=== PATIENT | male | born 1985 | race Two or more races ===

== ENCOUNTER 2017-08-14 11:59 | Emergency (ER) | payer SELFPAY ==
[2017-08-14] MEDS ORDERED: Sodium Chloride 0.9% 1,000 ML IV ONE (12:05)
[2017-08-14] MEDS ORDERED: Ondansetron 4 MG/2 ML SDV IVPUSH ONE (12:13)
--- NOTE | 2017-08-14 12:31 | EDM.PDOC ---
ED HPI GENERAL MEDICAL PROBLEM - General Chief Complaint: Cardiovascular Problem Stated Complaint: DIZZINESS,CLAMMY Time Seen by Provider: 08/14/17 12:04 Source of Information: Reports: Patient History Limitations: Reports: No Limitations - History of Present Illness INITIAL COMMENTS - FREE TEXT/NARRATIVE: HISTORY AND PHYSICAL: History of present illness: Patient is a 32-year-old male who presents to the emergency room with complaints of dizziness that started this morning. He states that on his way to the hospital he did have some nausea, vomiting times one and chest wall pain. Points to his axillary low chest wall bilaterally (no mid-sternal CP). He denies any abdominal pain, diarrhea or constipation. Denies any alcohol or drug abuse. Review of systems: As per history of present illness and below otherwise all systems reviewed and negative. Past medical history: As per history of present illness and as reviewed below otherwise noncontributory. Surgical history: As per history of present illness and as reviewed below otherwise noncontributory. Social history: No reported history of drug or alcohol abuse. Family history: As per history of present illness and as reviewed below otherwise noncontributory. Physical exam: Enteral: Well-developed and well-nourished 32-year-old male. Alert and oriented. Nontoxic appearing and in no acute distress. HEENT: Atraumatic, normocephalic, pupils reactive, negative for conjunctival pallor or scleral icterus, mucous membranes moist, throat clear, tympanic membranes normal bilaterally, neck supple, nontender, trachea midline. Meningeal sign or trismus. The drooling or hot potato voice. Lungs: Clear to auscultation, breath sounds equal bilaterally, chest nontender. Heart: S1S2, regular rate and rhythm Abdomen: Soft, nondistended, nontender. Negative for masses or hepatosplenomegaly. Negative for costovertebral tenderness. Pelvis: Stable nontender. Genitourinary: Deferred. Rectal: Deferred. Extremities: Atraumatic, negative for cords or calf pain. Neurovascular unremarkable. Neuro: Awake, alert, oriented. Cranial nerves II through XII unremarkable. Cerebellum unremarkable. Motor and sensory unremarkable throughout. Exam nonfocal. Patient's symptoms are vague and nonspecific. Vital signs are stable. EKG shows normal sinus rhythm, heart rate 65. Diagnostics: CBC, CMP, troponin, EKG Therapeutics: IV fluid, Zofran Impression: Dizziness Plan: 1. Supportive care measures such as Tylenol and/or ibuprofen as needed. Encourage fluids to prevent dehydration. Wayne diet for the next 24-48 hours to prevent upset stomach/vomiting. Please rest for the remainder of the day. 2. Follow-up with your primary care provider in the next 1-2 days. Return to the ED as needed and as discussed. Definitive disposition and diagnosis as appropriate pending reevaluation and review of above. Onset: Today Duration: Hour(s): Location: Reports: Head, Chest chest Pain Score (Numeric/FACES): 4 - Related Data Allergies Allergy/AdvReac Type Severity Reaction Status Date / Time No Known Allergies Allergy Verified 08/14/17 12:03 Home Meds: Home Meds . [No Known Home Meds] 08/14/17 [History] Past Medical History HEENT History: Reports: None Cardiovascular History: Reports: None Respiratory History: Reports: None Gastrointestinal History: Reports: None Genitourinary History: Reports: None Musculoskeletal History: Reports: None Neurological History: Reports: None Psychiatric History: Reports: Anxiety Endocrine/Metabolic History: Reports: None Hematologic History: Reports: None Immunologic History: Reports: None Oncologic (Cancer) History: Reports: None Dermatologic History: Reports: None - Past Surgical History Head Surgeries/Procedures: Reports: None HEENT Surgical History: Reports: None Cardiovascular Surgical History: Reports: None Respiratory Surgical History: Reports: None GI Surgical History: Reports: None Male Surgical History: Reports: None Neurological Surgical History: Reports: None Musculoskeletal Surgical History: Reports: None Oncologic Surgical History: Reports: None Dermatological Surgical History: Reports: None Social & Family History - Family History Family Medical History: Noncontributory - Tobacco Use Smoking Status *Q: Never Smoker Second Hand Smoke Exposure: No - Caffeine Use Caffeine Use: Reports: Coffee - Recreational Drug Use Recreational Drug Use: Yes Recreational Drug Type: Reports: Marijuana/Hashish Recreational Drug Use Frequency: Daily ED ROS GENERAL - Review of Systems Review Of Systems: ROS reveals no pertinent complaints other than HPI. ED EXAM, GENERAL - Physical Exam Exam: See Below (See dictation) Course - Vital Signs Last Recorded V/S: Last Vital Signs Temp 96.7 F 08/14/17 12:03 Pulse 91 08/14/17 12:03 Resp 18 08/14/17 12:03 BP 157/83 H 08/14/17 12:03 Pulse Ox 98 08/14/17 12:03 Orthostatic Blood Pressure [ 124/69 Standing] Orthostatic Blood Pressure [ 122/66 Sitting] Orthostatic Blood Pressure [ 124/69 Supine] - Orders/Labs/Meds Orders: Active Orders 24 hr Category Date Time Status EKG Documentation Completion [RC] STAT Care 08/14/17 12:04 Active Orthostatic Vital Signs [RC] ASDIRECTED Care 08/14/17 12:04 Active Labs: Laboratory Tests 08/14/17 08/14/17 08/14/17 Range/Units 12:12 12:12 12:12 WBC 4.92 (4.0-11.0) K/uL RBC 4.81 (4.50-5.90) M/uL Hgb 14.2 (13.0-17.0) g/dL Hct 40.6 (38.0-50.0) % MCV 84.4 (80.0-98.0) fL MCH 29.5 (27.0-32.0) pg MCHC 35.0 (31.0-37.0) g/dL RDW Std Deviation 41.6 (28.0-62.0) fl RDW Coeff of Diane 14 (11.0-15.0) % Plt Count 230 (150-400) K/uL MPV 9.20 (7.40-12.00) fL Neut % (Auto) 49.1 (48.0-80.0) % Lymph % (Auto) 40.4 H (16.0-40.0) % Jay % (Auto) 7.3 (0.0-15.0) % Eos % (Auto) 2.6 (0.0-7.0) % Baso % (Auto) 0.6 (0.0-1.5) % Neut # (Auto) 2.4 (1.4-5.7) K/uL Lymph # (Auto) 2.0 (0.6-2.4) K/uL Jay # (Auto) 0.4 (0.0-0.8) K/uL Eos # (Auto) 0.1 (0.0-0.7) K/uL Baso # (Auto) 0.0 (0.0-0.1) K/uL Nucleated RBC % 0.0 /100WBC Nucleated RBCs # 0 K/uL Sodium 139 (136-148) mmol/L Potassium 3.5 (3.5-5.1) mmol/L Chloride 103 (98-107) mmol/L Carbon Dioxide 21.9 (21.0-32.0) mmol/L BUN 19 H (7.0-18.0) mg/dL Creatinine 1.0 (0.8-1.3) mg/dL Est Cr Clr Drug Dosing 107.03 mL/min Estimated GFR (MDRD) > 60.0 ml/min Glucose 91 (74-106) mg/dL Calcium 9.1 (8.5-10.1) mg/dL Total Bilirubin 0.4 (0.2-1.0) mg/dL AST 41 H (15-37) IU/L ALT 44 (14-63) IU/L Alkaline Phosphatase 72 (46-116) U/L Troponin I < 0.050 (0.000-0.056) ng/mL Total Protein 7.8 (6.4-8.2) g/dL Albumin 4.2 (3.4-5.0) g/dL Globulin 3.6 H (2.0-3.5) g/dL Albumin/Globulin Ratio 1.2 L (1.3-2.8) Meds: Medications Discontinued Medications Generic Name Dose Route Start Last Admin Trade Name Freq PRN Reason Stop Dose Admin Sodium Chloride 1,000 mls @ 999 mls/hr 08/14/17 12:05 08/14/17 12:16 Normal Saline IV 08/14/17 13:05 999 mls/hr STAT ONE Administration Ondansetron HCl 4 mg 08/14/17 12:13 08/14/17 12:20 Zofran IVPUSH 08/14/17 12:14 4 mg ONETIME ONE Administration Departure - Departure Time of Disposition: 13:21 Disposition: Home, Self-Care 01 Clinical Impression: Dizziness Instructions: Dizziness, [id number] Referrals: PCP,None [Primary Care Provider] - Forms: ED Department Discharge Additional Instructions: My general discharge The following information is given to patients seen in the emergency department who are being discharged to home. This information is to outline your options for follow-up care. We provide all patients seen in our emergency department with a follow-up referral. The need for follow-up, as well as the timing and circumstances, are variable depending upon the specifics of your emergency department visit. If you don't have a primary care physician on staff, we will provide you with a referral. We always advise you to contact your personal physician following an emergency department visit to inform them of the circumstance of the visit and for follow-up with them and/or the need for any referrals to a consulting specialist. The emergency department will also refer you to a specialist when appropriate. This referral assures that you have the opportunity for follow-up care with a specialist. All of these measure are taken in an effort to provide you with optimal care, which includes your follow-up. Under all circumstances we always encourage you to contact your private physician who remains a resource for coordinating your care. When calling for follow-up care, please make the office aware that this follow-up is from your recent emergency room visit. If for any reason you are refused follow-up, please contact the [facility] Emergency Department at and asked to speak to the emergency department charge nurse. [facility] [address] [place] [address] 1. Supportive care measures such as Tylenol and/or ibuprofen as needed. Encourage fluids to prevent dehydration. Wayne diet for the next 24-48 hours to prevent upset stomach/vomiting. Please rest for the remainder of the day. 2. Follow-up with your primary care provider in the next 1-2 days. Return to the ED as needed and as discussed. - My Orders Last 24 Hours: My Active Orders 08/14/17 12:04 EKG Documentation Completion [RC] STAT Orthostatic Vital Signs [RC] ASDIRECTED - Assessment/Plan Last 24 Hours: My Active Orders 08/14/17 12:04 EKG Documentation Completion [RC] STAT Orthostatic Vital Signs [RC] ASDIRECTED
[2017-08-14 12:49] LABS: CHLORIDE,CL 103 mmol/L (98-107); SODIUM,NA 139 mmol/L (136-148)
== END 2017-08-14 13:24 | disposition home or self-care (01) ==
LOC: MW.ED 11:59
DX: R42 Dizziness and giddiness (principal)
CPT/HCPCS: 36415; 80053; 84484; 85025; 93005; 96361; 96374; 99285; J2405; J7040; 99283

== ENCOUNTER 2018-07-30 15:12 | Emergency (ER) | payer BC ==
[2018-07-30] MEDS ORDERED: Sodium Chloride 0.9% 1,000 ML IV ONE (15:13)
--- NOTE | 2018-07-30 15:15 | EDM.PDOC ---
ED HPI GENERAL MEDICAL PROBLEM - General Stated Complaint: DIZZINESS Time Seen by Provider: 07/30/18 15:14 Source of Information: Reports: Patient - History of Present Illness INITIAL COMMENTS - FREE TEXT/NARRATIVE: HISTORY AND PHYSICAL: History of present illness: [Patient presents with dizziness Patient is been having sinus pain and pressure over the last couple of weeks associated with cough today at work became dizzy and had to sit down he describes sweats as well he arrives by private vehicle in no distress no passing out for anything of this nature no fever nausea vomiting chills sweats no chest pain shortness breath headache dizziness palpitation no bowel or urine symptoms Review of systems: As per history of present illness and below otherwise all systems reviewed and negative. Past medical history: As per history of present illness and as reviewed below otherwise noncontributory. Surgical history: As per history of present illness and as reviewed below otherwise noncontributory. Social history: No reported history of drug or alcohol abuse. Family history: As per history of present illness and as reviewed below otherwise noncontributory. Physical exam: HEENT: Atraumatic, normocephalic, pupils reactive, negative for conjunctival pallor or scleral icterus, mucous membranes moist, throat clear, neck supple, nontender, trachea midline. Sinus tenderness left greater than right maxillary sinus Lungs: Clear to auscultation, breath sounds equal bilaterally, chest nontender. Heart: S1S2, regular, negative for clicks, rubs, or JVD. Abdomen: Soft, nondistended, nontender. Negative for masses or hepatosplenomegaly. Negative for costovertebral tenderness. Pelvis: Stable nontender. Genitourinary: Deferred. Rectal: Deferred. Extremities: Atraumatic, negative for cords or calf pain. Neurovascular unremarkable. Neuro: Awake, alert, oriented. Cranial nerves II through XII unremarkable. Cerebellum unremarkable. Motor and sensory unremarkable throughout. Exam nonfocal. Diagnostics: [CBC CMP UA troponin Chest 1 view EKG ] orthostatics Therapeutics: [Normal saline ]Amoxicillin Impression: [ dizziness ]-his ALT Sinusitis Definitive disposition and diagnosis as appropriate pending reevaluation and review of above. - Related Data Allergies Allergy/AdvReac Type Severity Reaction Status Date / Time No Known Allergies Allergy Verified 08/14/17 12:03 Home Meds: Home Meds . [No Known Home Meds] 08/14/17 [History] Past Medical History HEENT History: Reports: None Cardiovascular History: Reports: None Respiratory History: Reports: None Gastrointestinal History: Reports: None Genitourinary History: Reports: None Musculoskeletal History: Reports: None Neurological History: Reports: None Psychiatric History: Reports: Anxiety Endocrine/Metabolic History: Reports: None Hematologic History: Reports: None Immunologic History: Reports: None Oncologic (Cancer) History: Reports: None Dermatologic History: Reports: None - Past Surgical History Head Surgeries/Procedures: Reports: None HEENT Surgical History: Reports: None Cardiovascular Surgical History: Reports: None Respiratory Surgical History: Reports: None GI Surgical History: Reports: None Male Surgical History: Reports: None Neurological Surgical History: Reports: None Musculoskeletal Surgical History: Reports: None Oncologic Surgical History: Reports: None Dermatological Surgical History: Reports: None Social & Family History - Family History Family Medical History: Noncontributory - Caffeine Use Caffeine Use: Reports: Coffee ED ROS GENERAL - Review of Systems Review Of Systems: See Below ED EXAM, GENERAL - Physical Exam Exam: See Below Course - Vital Signs Last Recorded V/S: Last Vital Signs Temp Pulse 79 07/30/18 15:45 Resp 15 07/30/18 15:45 BP 149/93 H 07/30/18 15:45 Pulse Ox 95 07/30/18 15:45 Orthostatic Blood Pressure [] 149/92 Orthostatic Blood Pressure [] 139/83 - Orders/Labs/Meds Orders: Active Orders 24 hr Category Date Time Status EKG Documentation Completion [RC] STAT Care 07/30/18 15:14 Active Labs: Laboratory Tests 07/30/18 07/30/18 07/30/18 Range/Units 15:31 15:31 16:25 WBC 4.72 (4.0-11.0) K/uL RBC 4.67 (4.50-5.90) M/uL Hgb 14.0 (13.0-17.0) g/dL Hct 40.6 (38.0-50.0) % MCV 86.9 (80.0-98.0) fL MCH 30.0 (27.0-32.0) pg MCHC 34.5 (31.0-37.0) g/dL RDW Std Deviation 44.2 (28.0-62.0) fl RDW Coeff of Diane 14 (11.0-15.0) % Plt Count 204 (150-400) K/uL MPV 9.60 (7.40-12.00) fL Neut % (Auto) 53.5 (48.0-80.0) % Lymph % (Auto) 32.4 (16.0-40.0) % [place] % (Auto) 9.5 (0.0-15.0) % Eos % (Auto) 4.0 (0.0-7.0) % Baso % (Auto) 0.6 (0.0-1.5) % Neut # (Auto) 2.5 (1.4-5.7) K/uL Lymph # (Auto) 1.5 (0.6-2.4) K/uL [place] # (Auto) 0.5 (0.0-0.8) K/uL Eos # (Auto) 0.2 (0.0-0.7) K/uL Baso # (Auto) 0.0 (0.0-0.1) K/uL Nucleated RBC % 0.0 /100WBC Nucleated RBCs # 0 K/uL Sodium 139 (136-148) mmol/L Potassium 4.1 (3.5-5.1) mmol/L Chloride 103 (98-107) mmol/L Carbon Dioxide 27.3 (21.0-32.0) mmol/L BUN 22 H (7.0-18.0) mg/dL Creatinine 1.2 (0.8-1.3) mg/dL Est Cr Clr Drug Dosing 88.38 mL/min Estimated GFR (MDRD) > 60.0 ml/min Glucose 104 (74-106) mg/dL Calcium 8.9 (8.5-10.1) mg/dL Total Bilirubin 0.3 (0.2-1.0) mg/dL AST 26 (15-37) IU/L ALT 33 (14-63) IU/L Alkaline Phosphatase 78 (46-116) U/L Troponin I < 0.050 (0.000-0.056) ng/mL Total Protein 7.5 (6.4-8.2) g/dL Albumin 4.1 (3.4-5.0) g/dL Globulin 3.4 (2.6-4.0) g/dL Albumin/Globulin Ratio 1.2 (0.9-1.6) Urine Color YELLOW Urine Appearance CLEAR Urine pH 6.0 (5.0-8.0) Ur Specific [place] 1.025 (1.001-1.035) Urine Protein NEGATIVE (NEGATIVE) mg/dL Urine Glucose (UA) NEGATIVE (NEGATIVE) mg/dL Urine Ketones NEGATIVE (NEGATIVE) mg/dL Urine Occult Blood NEGATIVE (NEGATIVE) Urine Nitrite NEGATIVE (NEGATIVE) Urine Bilirubin NEGATIVE (NEGATIVE) Urine Urobilinogen 0.2 (<2.0) EU/dL Ur Leukocyte Esterase NEGATIVE (NEGATIVE) Meds: Medications Discontinued Medications Generic Name Dose Route Start Last Admin Trade Name Freq PRN Reason Stop Dose Admin Sodium Chloride 1,000 mls @ 999 mls/hr 07/30/18 15:13 07/30/18 15:44 Normal Saline IV 07/30/18 16:13 999 mls/hr STAT ONE Administration Departure - Departure Time of Disposition: 17:08 Disposition: Home, Self-Care 01 Condition: Good Clinical Impression: Sinusitis - Discharge Information Referrals: PCP,None [Primary Care Provider] - Additional Instructions: The following information is given to patients seen in the emergency department who are being discharged to home. This information is to outline your options for follow-up care. We provide all patients seen in our emergency department with a follow-up referral. The need for follow-up, as well as the timing and circumstances, are variable depending upon the specifics of your emergency department visit. If you don't have a primary care physician on staff, we will provide you with a referral. We always advise you to contact your personal physician following an emergency department visit to inform them of the circumstance of the visit and for follow-up with them and/or the need for any referrals to a consulting specialist. The emergency department will also refer you to a specialist when appropriate. This referral assures that you have the opportunity for follow-up care with a specialist. All of these measure are taken in an effort to provide you with optimal care, which includes your follow-up. Under all circumstances we always encourage you to contact your private physician who remains a resource for coordinating your care. When calling for follow-up care, please make the office aware that this follow-up is from your recent emergency room visit. If for any reason you are refused follow-up, please contact the [facility] emergency department at and asked to speak to the emergency department charge nurse. - My Orders Last 24 Hours: My Active Orders 07/30/18 15:14 EKG Documentation Completion [RC] STAT - Assessment/Plan Last 24 Hours: My Active Orders 07/30/18 15:14 EKG Documentation Completion [RC] STAT
--- NOTE | 2018-07-30 16:24 | CR ---
EXAMINATION: Portable chest radiograph. HISTORY: Shortness of breath. FINDINGS: The trachea is midline. The cardiomediastinal silhouette is within normal limits. No pulmonary infiltrates, effusions or pneumothorax. Osseous structures appear unremarkable. IMPRESSION: No acute cardiopulmonary process.
[2018-07-30 16:38] LABS: CHLORIDE,CL 103 mmol/L (98-107); SODIUM,NA 139 mmol/L (136-148)
== END 2018-07-30 17:50 | disposition home or self-care (01) ==
LOC: MW.ED 15:12
DX: J32.9 Chronic sinusitis, unspecified (principal)
CPT/HCPCS: 36415; 71045; 80053; 81003; 84484; 85025; 93005; 96360; 96361; 99284; J7040; 99283

== ENCOUNTER 2019-07-21 15:33 | Emergency (ER) | payer BC ==
[2019-07-21] MEDS ORDERED: Tetracaine HCl/PF 0.5% 4 ML Bottle EYEBOTH ONE (16:31)
--- NOTE | 2019-07-21 16:32 | EDM.PDOC ---
ED HPI GENERAL MEDICAL PROBLEM - General Chief Complaint: Eye Problems Stated Complaint: SOMETHING IN EYE Time Seen by Provider: 07/21/19 16:25 Source of Information: Reports: Patient History Limitations: Reports: No Limitations - History of Present Illness INITIAL COMMENTS - FREE TEXT/NARRATIVE: HISTORY AND PHYSICAL: History of present illness: Patient is a 34-year-old male who presents to the emergency room with complaints of a foreign body in the right eye. 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 He has a sensation of foreign body every time he blinks and did flush his eyes with copious amounts of irrigating solution while at work. Does not wear any contacts. He denies any change in vision. Offers no systemic complaints. Review of systems: As per history of present illness and below otherwise all systems reviewed and negative. Past medical history: As per history of present illness and as reviewed below otherwise noncontributory. Surgical history: As per history of present illness and as reviewed below otherwise noncontributory. Social history: See social history for further information Family history: As per history of present illness and as reviewed below otherwise noncontributory. Physical exam: General: Well-developed and well-nourished 34-year-old male. Alert and oriented. Nontoxic-appearing and in no acute distress. HEENT: Atraumatic, normocephalic, pupils equal and reactive bilaterally, negative for conjunctival pallor or scleral icterus, Pinpoint FB right eye, no intraoccular pain with movement, mucous membranes moist, TMs normal bilaterally , throat clear, neck supple, nontender, trachea midline. No drooling or trismus noted. No meningeal signs. No hot potato voice noted. Lungs: Clear to auscultation, breath sounds equal bilaterally. Heart: S1S2, regular rate and rhythm without overt murmur Skin: Intact, warm, dry. No lesions or rashes noted. Extremities: Atraumatic, moves all extremities per self without difficulty or deficits. Neurovascular unremarkable. Neuro: Awake, alert, oriented. Cranial nerves II through XII unremarkable. Cerebellum unremarkable. Motor and sensory unremarkable throughout. Exam nonfocal. Notes: Tetracaine was used to anesthetize the eye. There is no corneal abrasions noted. There is a small pinpoint foreign body noted in the center of the eye. I did attempt to remove this, unsuccessful. Dr. Wing, staking press operator on- call was consulted on this case. He states he will see the patient tomorrow morning before clinic. Requested to give him some erythromycin ointment while here. All information was shared with the patient. Supportive care measures were reviewed and discussed. Voices understanding and is agreeable to plan of care. Denies any further questions or concerns at this time. Diagnostics: [employer]: Tetracaine, Erythromycin Prescription: None Impression: Eye FB, right Plan: 1. Apply the ointment every 4 hours while awake. Until seen by Dr Renae. 2. Dr Renae at [facility] will see you tomorrow morning between 7:30am - 8am. 3. Tylenol and/or ibuprofen as needed for pain management. 4. Return to the ED as needed and as discussed. Definitive disposition and diagnosis as appropriate pending reevaluation and review of above. - Related Data Allergies Allergy/AdvReac Type Severity Reaction Status Date / Time No Known Allergies Allergy Verified 07/21/19 16:21 Home Meds: Home Meds . [No Known Home Meds] 08/14/17 [History] Past Medical History HEENT History: Reports: None Cardiovascular History: Reports: None Respiratory History: Reports: None Gastrointestinal History: Reports: None Genitourinary History: Reports: None Musculoskeletal History: Reports: None Neurological History: Reports: None Psychiatric History: Reports: Anxiety Endocrine/Metabolic History: Reports: None Hematologic History: Reports: None Immunologic History: Reports: None Oncologic (Cancer) History: Reports: None Dermatologic History: Reports: None - Infectious Disease History Infectious Disease History: Reports: None - Past Surgical History Head Surgeries/Procedures: Reports: None HEENT Surgical History: Reports: None Cardiovascular Surgical History: Reports: None Respiratory Surgical History: Reports: None GI Surgical History: Reports: None Male Surgical History: Reports: None Neurological Surgical History: Reports: None Musculoskeletal Surgical History: Reports: None Oncologic Surgical History: Reports: None Dermatological Surgical History: Reports: None Social & Family History - Family History Family Medical History: Noncontributory - Tobacco Use Smoking Status *Q: Never Smoker - Caffeine Use Caffeine Use: Reports: Coffee - Recreational Drug Use Recreational Drug Use: No ED ROS GENERAL - Review of Systems Review Of Systems: Comprehensive ROS is negative, except as noted in HPI. ED EXAM GENERAL W FULL EYE - Physical Exam Exam: See Below (See dictation) Course - Vital Signs Last Recorded V/S: Last Vital Signs Temp 96.9 F 07/21/19 16:21 Pulse 85 07/21/19 16:21 Resp 18 07/21/19 16:21 BP 141/87 H 07/21/19 16:21 Pulse Ox 98 07/21/19 16:21 - Orders/Labs/Meds Meds: Medications Discontinued Medications Generic Name Dose Route Start Last Admin Trade Name Sarai PRN Reason Stop Dose Admin Erythromycin 1 gm 07/21/19 18:01 Erythromycin 0.5% Ophth Oint EYERT 07/21/19 18:02 ONETIME ONE Tetracaine HCl 1 ml 07/21/19 16:31 07/21/19 17:24 Tetracaine 0.5% Steri-Unit Daily EYEBOTH 07/21/19 16:32 1 ml ASDIRECTED ONE Administration Departure - Departure Time of Disposition: 18:09 Disposition: Home, Self-Care 01 Clinical Impression: Eye foreign body Qualifiers: Encounter type: initial encounter Laterality: right Qualified Code(s): T15.91XA - Foreign body on external eye, part unspecified, right eye, initial encounter - Discharge Information Instructions: Eye Foreign Body, [id number] Referrals: PCP,None [Primary Care Provider] - Forms: ED Department Discharge Additional Instructions: The following information is given to patients seen in the emergency department who are being discharged to home. This information is to outline your options for follow-up care. We provide all patients seen in our emergency department with a follow-up referral. The need for follow-up, as well as the timing and circumstances, are variable depending upon the specifics of your emergency department visit. If you don't have a primary care physician on staff, we will provide you with a referral. We always advise you to contact your personal physician following an emergency department visit to inform them of the circumstance of the visit and for follow-up with them and/or the need for any referrals to a consulting specialist. The emergency department will also refer you to a specialist when appropriate. This referral assures that you have the opportunity for follow-up care with a specialist. All of these measure are taken in an effort to provide you with optimal care, which includes your follow-up. Under all circumstances we always encourage you to contact your private physician who remains a resource for coordinating your care. When calling for follow-up care, please make the office aware that this follow-up is from your recent emergency room visit. If for any reason you are refused follow-up, please contact the [facility] Emergency Department at and asked to speak to the emergency department charge nurse. [facility] [address] [place] [id number] [facility] [address] [place] [id number] 1. Apply the ointment every 4 hours while awake. Until seen by Dr Renae. 2. Dr Renae at [facility] will see you tomorrow morning between 7:30am - 8am. Inform them that you were seen in the ER and Dr Renae agreed to see you before his OR cases in the morning. 3. Tylenol and/or ibuprofen as needed for pain management. 4. Return to the ED as needed and as discussed. Sepsis Event Note - Evaluation Sepsis Screening Result: No Definite Risk - Focused Exam Vital Signs: Vital Signs Temp Pulse Resp BP Pulse Ox 07/21/19 16:21 96.9 F 85 18 141/87 H 98 Date Exam was Performed: 07/21/19 Time Exam was Performed: 18:06
[2019-07-21] MEDS ORDERED: Erythromycin Base 0.5% Ophth Oint 1 GM Tube EYERT ONE (18:01)
== END 2019-07-21 18:34 | disposition home or self-care (01) ==
LOC: MW.ED 15:33
DX: T15.01XA Foreign body in cornea, right eye, initial encounter (principal)
CPT/HCPCS: 99283; A9270

== ENCOUNTER 2021-03-07 08:16 | Emergency (ER) | payer BC ==
--- NOTE | 2021-03-07 08:18 | EDM.PDOC ---
ED HPI GENERAL MEDICAL PROBLEM - General Stated Complaint: CHEST PAIN/SHAKING Time Seen by Provider: 03/07/21 08:17 Source of Information: Reports: Patient History Limitations: Reports: No Limitations - History of Present Illness INITIAL COMMENTS - FREE TEXT/NARRATIVE: 35-year-old male no past medical history presents for chest pain, palpitations, generalized weakness. Patient states that starting 2 days ago he has been having episodic heart racing sensation with discomfort in his substernal chest without radiation. This is associated with anxiety and shortness of breath. This has been occurring multiple times throughout the day but typically does not last very long. This morning patient had an episode lasting a bit longer with heart rates in the 130s. Denies pleuritic pain, lower extremity swelling or pain. He did feel generalized weakness and felt like his legs were about to give out this morning. Denies any fevers or cough. Notes that he gets tested weekly at work for Covid and is always negative. No personal history of cardiac problems, familial history of paternal cardiac problems. chest Pain Score (Numeric/FACES): 2 - Related Data Allergies Allergy/AdvReac Type Severity Reaction Status Date / Time No Known Allergies Allergy Verified 03/07/21 08:31 Home Meds: Home Meds Metoprolol Succinate [Toprol Xl] 25 mg PO DAILY #30 tab.er.24h 03/07/21 [Rx] Past Medical History HEENT History: Reports: None Cardiovascular History: Reports: None Respiratory History: Reports: None Gastrointestinal History: Reports: None Genitourinary History: Reports: None Musculoskeletal History: Reports: None Neurological History: Reports: None Psychiatric History: Reports: Anxiety Endocrine/Metabolic History: Reports: None Hematologic History: Reports: None Immunologic History: Reports: None Oncologic (Cancer) History: Reports: None Dermatologic History: Reports: None - Infectious Disease History Infectious Disease History: Reports: None - Past Surgical History Head Surgeries/Procedures: Reports: None HEENT Surgical History: Reports: None Cardiovascular Surgical History: Reports: None Respiratory Surgical History: Reports: None GI Surgical History: Reports: None Male Surgical History: Reports: None Neurological Surgical History: Reports: None Musculoskeletal Surgical History: Reports: None Oncologic Surgical History: Reports: None Dermatological Surgical History: Reports: None Social & Family History - Family History Family Medical History: No Pertinent Family History - Caffeine Use Caffeine Use: Reports: Coffee ED ROS GENERAL - Review of Systems Review Of Systems: Comprehensive ROS is negative, except as noted in HPI. ED EXAM, GENERAL - Physical Exam Exam: See Below Exam Limited By: No Limitations General Appearance: Alert, WD/WN, No Apparent Distress, Anxious Ears: Hearing Grossly Normal Throat/Mouth: Normal Voice, No Airway Compromise Head: Atraumatic, Normocephalic Neck: Normal Inspection Respiratory/Chest: No Respiratory Distress, Lungs Clear, Normal Breath Sounds, No Accessory Muscle Use Cardiovascular: Normal Peripheral Pulses, No Edema, Tachycardia GI/Abdominal: Soft, Non-Tender Extremities: Normal Inspection Neurological: Alert, Normal Cognition, Normal Gait Psychiatric: Normal Affect, Normal Mood, Anxious Skin Exam: Warm, Dry, Intact, Normal Color #1 Interpretation EKG Date: 03/07/21 Time: 08:15 Rhythm: NSR Rate (Beats/Min): 110 [place]: Normal P-Wave: Present QRS: Normal ST-T: Normal QT: Normal SC/PQ Interval: 196 Comparison: NA - No Prior EKG EKG Interpretation Comments: no ischemic changes Course - Vital Signs Last Recorded V/S: Last Vital Signs Temp 99.1 F 03/07/21 08:18 Pulse 119 H 03/07/21 08:18 Resp 22 H 03/07/21 08:18 BP 152/77 H 03/07/21 08:18 Pulse Ox 97 03/07/21 08:18 - Orders/Labs/Meds Orders: Active Orders 24 hr Category Date Time Status Saline Lock Insert [OM.PC] Stat Oth 03/07/21 08:18 Ordered Labs: Laboratory Tests 03/07/21 03/07/21 03/07/21 Range/Units 08:25 08:25 08:25 WBC 8.36 (4.0-11.0) K/uL RBC 4.81 (4.50-5.90) M/uL Hgb 14.2 (13.0-17.0) g/dL Hct 41.8 (38.0-50.0) % MCV 86.9 (80.0-98.0) fL MCH 29.5 (27.0-32.0) pg MCHC 34.0 (31.0-37.0) g/dL RDW Std Deviation 43.4 (28.0-62.0) fl RDW Coeff of Diane 14 (11.0-15.0) % Plt Count 258 (150-400) K/uL MPV 9.90 (7.40-12.00) fL Neut % (Auto) 43.7 L (48.0-80.0) % Lymph % (Auto) 47.0 H (16.0-40.0) % Cuming % (Auto) 5.9 (0.0-15.0) % Eos % (Auto) 3.0 (0.0-7.0) % Baso % (Auto) 0.4 (0.0-1.5) % Neut # (Auto) 3.7 (1.4-5.7) K/uL Lymph # (Auto) 3.9 H (0.6-2.4) K/uL Cuming # (Auto) 0.5 (0.0-0.8) K/uL Eos # (Auto) 0.3 (0.0-0.7) K/uL Baso # (Auto) 0.0 (0.0-0.1) K/uL Nucleated RBC % 0.0 /100WBC Nucleated RBCs # 0 K/uL INR 1.02 APTT 24.5 (18.6-31.3) SEC D-Dimer, Quantitative < 0.19 (0.0-0.50) mg/L FEU Sodium 140 (136-148) mmol/L Potassium 3.8 (3.5-5.1) mmol/L Chloride 101 (98-107) mmol/L Carbon Dioxide 25.5 (21.0-32.0) mmol/L BUN 23 H (7.0-18.0) mg/dL Creatinine 1.2 (0.8-1.3) mg/dL Est Cr Clr Drug Dosing 86.74 mL/min Estimated GFR (MDRD) > 60.0 ml/min Glucose 120 H (74-106) mg/dL Calcium 8.7 (8.5-10.1) mg/dL Total Bilirubin 0.4 (0.2-1.0) mg/dL AST 27 (15-37) IU/L ALT 34 (14-63) IU/L Alkaline Phosphatase 66 (46-116) U/L Troponin I < 0.050 (0.000-0.056) ng/mL Total Protein 7.5 (6.4-8.2) g/dL Albumin 4.4 (3.4-5.0) g/dL Globulin 3.1 (2.6-4.0) g/dL Albumin/Globulin Ratio 1.4 (0.9-1.6) TSH, Ultra Sensitive 1.58 (0.36-3.74) uIU/mL SARS-CoV-2 RNA (MORIS) (NEGATIVE) 03/07/21 Range/Units 08:49 WBC (4.0-11.0) K/uL RBC (4.50-5.90) M/uL Hgb (13.0-17.0) g/dL Hct (38.0-50.0) % MCV (80.0-98.0) fL MCH (27.0-32.0) pg MCHC (31.0-37.0) g/dL RDW Std Deviation (28.0-62.0) fl RDW Coeff of Diane (11.0-15.0) % Plt Count (150-400) K/uL MPV (7.40-12.00) fL Neut % (Auto) (48.0-80.0) % Lymph % (Auto) (16.0-40.0) % Cuming % (Auto) (0.0-15.0) % Eos % (Auto) (0.0-7.0) % Baso % (Auto) (0.0-1.5) % Neut # (Auto) (1.4-5.7) K/uL Lymph # (Auto) (0.6-2.4) K/uL Cuming # (Auto) (0.0-0.8) K/uL Eos # (Auto) (0.0-0.7) K/uL Baso # (Auto) (0.0-0.1) K/uL Nucleated RBC % /100WBC Nucleated RBCs # K/uL INR APTT (18.6-31.3) SEC D-Dimer, Quantitative (0.0-0.50) mg/L FEU Sodium (136-148) mmol/L Potassium (3.5-5.1) mmol/L Chloride (98-107) mmol/L Carbon Dioxide (21.0-32.0) mmol/L BUN (7.0-18.0) mg/dL Creatinine (0.8-1.3) mg/dL Est Cr Clr Drug Dosing mL/min Estimated GFR (MDRD) ml/min Glucose (74-106) mg/dL Calcium (8.5-10.1) mg/dL Total Bilirubin (0.2-1.0) mg/dL AST (15-37) IU/L ALT (14-63) IU/L Alkaline Phosphatase (46-116) U/L Troponin I (0.000-0.056) ng/mL Total Protein (6.4-8.2) g/dL Albumin (3.4-5.0) g/dL Globulin (2.6-4.0) g/dL Albumin/Globulin Ratio (0.9-1.6) TSH, Ultra Sensitive (0.36-3.74) uIU/mL SARS-CoV-2 RNA (MORIS) NEGATIVE (NEGATIVE) Meds: Medications Discontinued Medications Generic Name Dose Route Start Last Admin Trade Name Freq PRN Reason Stop Dose Admin Aspirin 324 mg 03/07/21 08:31 03/07/21 08:46 Aspirin 81 Mg Tab.Chew PO 03/07/21 08:32 324 mg ONETIME ONE Administration Sodium Chloride 1,000 mls @ 999 mls/hr 03/07/21 08:31 03/07/21 08:46 Normal Saline IV 03/07/21 09:31 999 mls/hr .Bolus ONE Administration - Re-Assessments/Exams Free Text/Narrative Re-Assessment/Exam: 03/07/21 09:54 Labs and imaging are unremarkable. Patient's heart rate is improved to the eighties, sinus rhythm. Will discharge with metoprolol 25 mg daily and recommend cardiology follow-up for further assessment. Return precautions were discussed at length. Departure - Departure Time of Disposition: 09:54 Disposition: Home, Self-Care 01 Condition: Good Clinical Impression: Sinus tachycardia - Discharge Information Prescriptions: Metoprolol Succinate [Toprol Xl] 25 mg PO DAILY #30 tab.er.24h Instructions: Sinus Tachycardia Referrals: PCP,None [Primary Care Provider] - Additional Instructions: Your work-up in the emergency department is unremarkable. However you are having periods of tachycardia. I did prescribe a medication that can blunt the heart re sponse to natural catecholamines which may help with your symptoms. I would still follow-up with cardiology, information is provided below, you were also placed on a follow-up list so they should be calling you to help set up an appointment. [facility] [address] [place] [id number] The following information is given to patients seen in the emergency department who are being discharged to home. This information is to outline your options for follow-up care. We provide all patients seen in our emergency department with a follow-up referral. The need for follow-up, as well as the timing and circumstances, are variable depending upon the specifics of your emergency department visit. If you don't have a primary care physician on staff, we will provide you with a referral. We always advise you to contact your personal physician following an emergency department visit to inform them of the circumstance of the visit and for follow-up with them and/or the need for any referrals to a consulting specialist. The emergency department will also refer you to a specialist when appropriate. This referral assures that you have the opportunity for follow-up care with a specialist. All of these measure are taken in an effort to provide you with optimal care, which includes your follow-up. Under all circumstances we always encourage you to contact your private physician who remains a resource for coordinating your care. When calling for follow-up care, please make the office aware that this follow-up is from your recent emergency room visit. If for any reason you are refused follow-up, please contact the [facility] Emergency Department at and asked to speak to the emergency department charge nurse. Please follow up with your primary care physician. If you do not have a primary care physician, see below: [facility] [address] [place] [id number] [facility] [address] [place] [id number] [facility] [address] [place] [id number] Sepsis Event Note (ED) - Focused Exam Vital Signs: Vital Signs Temp Pulse Resp BP Pulse Ox 03/07/21 08:18 99.1 F 119 H 22 H 152/77 H 97 - My Orders Last 24 Hours: My Active Orders 03/07/21 08:18 Saline Lock Insert [OM.PC] Stat - Assessment/Plan Last 24 Hours: My Active Orders 03/07/21 08:18 Saline Lock Insert [OM.PC] Stat
[2021-03-07] MEDS ORDERED: Aspirin 81 MG Tab.Chew PO ONE (08:31)
[2021-03-07] MEDS ORDERED: Sodium Chloride 0.9% 1,000 ML IV ONE (08:31)
[2021-03-07 09:13] LABS: BLOOD UREA NITROGEN,BUN 23 mg/dL (7.0-18.0); CARBON DIOXIDE,CO2 25.5 mmol/L (21.0-32.0); CHLORIDE,CL 101 mmol/L (98-107); GLUCOSE RANDOM 120 mg/dL (74-106); POTASSIUM,K 3.8 mmol/L (3.5-5.1); SODIUM,NA 140 mmol/L (136-148)
--- NOTE | 2021-03-07 09:13 | CR ---
INDICATION: Chest pain. COMPARISON: Portable AP chest July 30, 2018. TECHNIQUE: Portable AP chest. FINDINGS: Normal sized cardiac silhouette. Clear lung crowell with no evidence of acute pneumonic infiltrates or CHF. No pneumothorax or pleural effusion. No interval change. IMPRESSION: No acute pathology. Dictated by Jose L Bob MD @ 03/07/2021 9:12:28 AM (Electronically Signed)
== END 2021-03-07 10:18 | disposition home or self-care (01) ==
LOC: MW.ED 08:16
DX: R00.0 Tachycardia, unspecified (principal); Z20.822 Contact with and (suspected) exposure to COVID-19
CPT/HCPCS: 36415; 71045; 80053; 84443; 84484; 85025; 85379; 85610; 85730; 87635; 93005; 99285; A9270; J7030; U0002

== ENCOUNTER 2021-11-24 14:28 | Emergency (ER) | payer BC ==
[2021-11-24] MEDS ORDERED: Ondansetron 4 MG Tab.DIS PO ONE (15:04)
[2021-11-24] MEDS ORDERED: Aspirin 81 MG Tab.Chew PO ONE (15:04)
[2021-11-24 15:40] LABS: CARBON DIOXIDE,CO2 28.5 mmol/L (21.0-32.0); POTASSIUM,K 4.2 mmol/L (3.5-5.1)
== END 2021-11-24 17:00 | disposition home or self-care (01) ==
LOC: MW.ED 14:28
DX: M54.2 Cervicalgia (principal); R06.00 Dyspnea, unspecified; Z20.822 Contact with and (suspected) exposure to COVID-19
CPT/HCPCS: 36415; 70360; 71045; 80053; 83735; 84484; 85025; 87635; 93005; 99284; A9270; 99283; U0002

== ENCOUNTER 2023-08-27 08:29 | Emergency (ER) | payer OTHER, BC ==
[2023-08-27] MEDS: Ketorolac 30 MG/ML SDV IM ONE (09:14)
== END 2023-08-27 09:40 | disposition home or self-care (01) ==
LOC: MW.ED 08:29
DX: S46.011A Strain of muscle(s) and tendon(s) of the rotator cuff of right shoulder, initial encounter (principal); Z75.8 Other problems related to medical facilities and other health care; X50.0XXA Overexertion from strenuous movement or load, initial encounter
CPT/HCPCS: 73030; 96372; 99283; J1885

== ENCOUNTER 2025-01-25 10:21 | Emergency (ER) | payer BC, OTHER | END 2025-01-25 12:16 | disposition home or self-care (01) | LOC: MW.ED 10:21 | DX: R06.2 Wheezing (principal); Z87.891 Personal history of nicotine dependence | CPT/HCPCS: 71045; 99285; J7620; 99283; A9270-GY ==